=== PATIENT | female | born 1935 | race Caucasian/White ===

== ENCOUNTER 2022-10-26 13:43 | Inpatient (IN) ==
[2022-10-26] MEDS ORDERED: TYLENOL 500 MG TAB EXTRA STRENGTH PO PRN (15:21)
[2022-10-26] MEDS ORDERED: ZOFRAN INJ 4 MG VIAL IVP PRN (15:23)
--- NOTE | 2022-10-26 15:58 | DR.H&P ---
H&P - History & Physical for Day of: H&P Date: 10/26/22 - Chief Complaint Chief Complaint: fever, ccc - History of Present Illness History of Present Illness: PT IS 87 WF, DIRECT ADMIT FROM DR MORRISON OFFICE WITH INFLUENZA A+ WITH CO FEVER, FATIGUE, CCC AND DEHYDRATION. PT REPORTS ONSET OF ILLNESS ONE WEEK AGO. PT HAS TAKE OTC ROBITUSSIN DM. PT HAS PMH OF HTN, CAD, OA, GERD AND HYPOTHYROIDISM. PT ADMITTED FOR TREATMENT AND EVALUATION OF ACUTE ILLNESS. - Past Medical History Past Medical History: Anxiety, Coronary Artery Disease, Dyslipidemia, Hypertension, Hypothyroidism - Past Surgical History Surgical History: Hysterectomy - Family History Family Medical History: Cancer, [place], Coronary Artery Disease, Hypertension - Social History Does patient currently use any type of tobacco product: No Have you used tobacco products in the last 12 months: No Type of Tobacco Use: None Does any household member use tobacco: No Alcohol Use: None Drug Use: None Risks, benefits, and alternatives of opioids discussed: No - Review of Systems Constitutional: Weakness Eyes: No Symptoms Reported ENT: No Symptoms Reported Respiratory: Cough, Shortness of Breath Cardiovascular: No Symptoms Reported Gastrointestinal: Nausea Genitourinary: No Symptoms Reported Musculoskeletal: No Symptoms Reported Skin: No Symptoms Reported Neurological: Weakness Oriented: Normal Eyes: Normal Ear: Normal Nose: Normal Throat: Normal Respiratory: Diminished Throughout, Wheezes Throughout Cardiovascular: Normal : Normal Auscultation: Bowel Sounds: Normal Palpation: Normal Tenderness: Normal Skin: Decreased Turgur Musculoskeletal: Normal Psychiatric: Anxiety Affect: Anxious Speech Pattern: Clear, Appropriate - Assessment/Plan (1) Influenza A Status: Acute Plan: ADMIT, RESP CONSULT. GENTLE IV HYDRATION, TAMIFUL. CXR ON ADMISSION. PRN SUPPLEMENTAL O2. VERIFY HOME MEDICATION, BP CONTROL (2) Acute bronchitis Status: Acute (3) Dyslipidemia Status: Chronic (4) Hypertension Status: Chronic (5) Hypothyroidism Status: Chronic (6) GERD (gastroesophageal reflux disease) Status: Chronic - Allergies Allergies/Adverse Reactions: Allergies Allergy/AdvReac Type Severity Reaction Status Date / Time MS Ceftriaxone Allergy Intermediate RASH Verified 03/11/13 17:50 [From Rocephin] - Medications Home Medications: Home Medications Medication Instructions Recorded Confirmed amlodipine 5 mg tablet 5 mg PO DAILY 03/11/13 09/19/13 benazepril 10 mg tablet 10 mg PO DAILY 03/11/13 09/19/13 conjugated estrogens 0.625 mg 0.625 mg PO DAILY 03/11/13 09/19/13 tablet (Premarin) levothyroxine 100 mcg tablet 0.1 mg PO DAILY 03/11/13 09/19/13 (Synthroid) propranolol 80 mg capsule,24 80 mg PO DAILY 03/11/13 09/19/13 hr,extended release (Inderal LA) simvastatin 40 mg tablet 40 mg PO DAILY 03/11/13 09/19/13 Previous Rx's Medication Instructions Recorded Fenofibrate [Fenofibrate 160 mg] 160 mg PO HS #30 tabs 09/20/13 famotidine 20 mg tablet 20 mg PO BID #60 tabs 09/20/13 lansoprazole 30 mg capsule,delayed 30 mg PO DAILY #30 caps 09/20/13 release
[2022-10-26] MEDS ORDERED: CONSULT PHARMACY - POTASSIUM & MAGNESIUM XX SCH (16:00)
[2022-10-26 16:17] VITALS: RESP 20
[2022-10-26 16:19] LABS: BASOPHILS % (AUTO) 0.2 % (0.2-1.0); EOSINOPHILS % (AUTO) 0.6 % (0.9-2.9); HEMATOCRIT 37.9 % (36.0-47.0); HEMOGLOBIN 12.7 g/dL (12.0-16.0); LYMPHOCYTES # (AUTO) 1.1 X10^3/uL (1.3-2.9); LYMPHOCYTES % (AUTO) 17.7 % (21.0-51.0); MEAN CORPUSCULAR HEMOGLOBIN 32.1 pg (27.0-34.0); MEAN CORPUSCULAR HGB CONC 33.5 g/dL (33.0-35.0); MEAN PLATELET VOLUME 7.7 fL (7.4-11.0); MONOCYTES # (AUTO) 0.7 x10^3/uL (0.3-0.8); MONOCYTES % (AUTO) 11.4 % (0.0-13.0); NEUTROPHILS # (AUTO) 4.2 x10^3/uL (2.2-4.8); NEUTROPHILS % (AUTO) 70.1 % (42.0-75.0); PLATELET COUNT 179 X10^3/uL (150.0-450.0); RED BLOOD COUNT 3.95 X10^6/uL (3.5-5.4); RED CELL DISTRIBUTION WIDTH 12.7 % (11.6-16.5)
[2022-10-26 16:30] LABS: BLOOD UREA NITROGEN 11 mg/dL (7-18); CALCIUM 8.6 mg/dL (8.5-10.1); CARBON DIOXIDE 29.1 mmol/L (21-32); CHLORIDE 98 mmol/L (98-107); COR NA(FOR HYPERGLY) 134 mmol/L (136-145); CREATININE 0.75 mg/dL (0.55-1.02); GLUCOSE 129 mg/dL (65-99); POTASSIUM 4.8 mmol/L (3.5-5.1); SODIUM 133 mmol/L (136-145); eGFR NON BLACK RACES > 60 (>60)
[2022-10-26 16:42] LABS: ALANINE AMINOTRANSFERASE 15 Units/L (12-78); ALBUMIN 2.4 g/dL (3.4-5.0); ALKALINE PHOSPHATASE 112 Units/L (46-116); ASPARTATE AMINO TRANSFERASE 21 Units/L (15-37); COR CA(FOR HYPOALB) 9.9 mg/dL (8.5-10.1); MAGNESIUM 1.9 mg/dL (2.0-2.9); TOTAL PROTEIN 6.9 g/dL (6.4-8.2)
--- NOTE | 2022-10-26 16:46 | RAD ---
HISTORYflu, fever, sobSTUDYCHEST, PA/LAT ADULTCOMPARISONNoneTECHNIQUETwo views of the chestFINDINGSStreaky bilateral lower lobe interstitial opacities with increased density in the lower lung warner as seen on the lateral view of the chest. No densely organized airspace consolidation. Heart size is normal. No mediastinal widening observed. No pleural fluid collections are demonstrated. There is no evidence of free air or pneumothorax. No acute osseous abnormalities of the chest.IMPRESSIONStreaky lower lobe interstitial infiltratesElectronically signed by: GIUSEPPE PORTILLO (Oct 26, 2022 16:45:08)
[2022-10-26] MEDS: PEPCID TAB 40 MG PO SCH (16:54)
[2022-10-26] MEDS: ZyrTEC TAB 10 MG PO SCH (16:54)
[2022-10-26] MEDS: ROBITUSSIN DM PO SCH ×2 (16:54→20:37)
[2022-10-26] MEDS: ZITHROMAX TAB 250 MG PO SCH (16:54)
[2022-10-26] MEDS: TAMIFLU PO SCH ×2 (16:55→20:37)
[2022-10-26] MEDS: NS 1,000 ML IV 1,000 ML IV SCH (16:55)
[2022-10-26] MEDS: MAGNESIUM SULFATE 1 GRAM/100 mL PREMIX 1 G/100 ML BAG IV SCH ×2 (17:43→20:38)
[2022-10-27] MEDS: ROBITUSSIN DM PO SCH ×5 (04:23→20:31)
[2022-10-27] MEDS: NS 1,000 ML IV 1,000 ML IV SCH ×2 (05:10→20:32)
[2022-10-27 06:29] LABS: BLOOD UREA NITROGEN 7 mg/dL (7-18); CALCIUM 8.4 mg/dL (8.5-10.1); CARBON DIOXIDE 22.1 mmol/L (21-32); CHLORIDE 101 mmol/L (98-107); COR NA(FOR HYPERGLY) 134 mmol/L (136-145); CREATININE 0.68 mg/dL (0.55-1.02); GLUCOSE 137 mg/dL (65-99); POTASSIUM 4.3 mmol/L (3.5-5.1); SODIUM 133 mmol/L (136-145); eGFR NON BLACK RACES > 60 (>60)
[2022-10-27 06:35] LABS: BASOPHILS % (AUTO) 0.2 % (0.2-1.0); EOSINOPHILS % (AUTO) 0.3 % (0.9-2.9); HEMOGLOBIN 12.1 g/dL (12.0-16.0); LYMPHOCYTES # (AUTO) 0.9 X10^3/uL (1.3-2.9); LYMPHOCYTES % (AUTO) 13.4 % (21.0-51.0); MEAN CORPUSCULAR HEMOGLOBIN 32.2 pg (27.0-34.0); MEAN CORPUSCULAR HGB CONC 33.7 g/dL (33.0-35.0); MEAN CORPUSCULAR VOLUME 95.6 fL (80.0-100.0); MONOCYTES # (AUTO) 0.6 x10^3/uL (0.3-0.8); MONOCYTES % (AUTO) 9.3 % (0.0-13.0); NEUTROPHILS % (AUTO) 76.8 % (42.0-75.0); PLATELET COUNT 165 X10^3/uL (150.0-450.0); RED BLOOD COUNT 3.77 X10^6/uL (3.5-5.4); WHITE BLOOD COUNT 6.5 X10^3/uL (3.6-10.0)
[2022-10-27 06:55] LABS: ALANINE AMINOTRANSFERASE < 6 Units/L (12-78); ALKALINE PHOSPHATASE 100 Units/L (46-116); ASPARTATE AMINO TRANSFERASE 22 Units/L (15-37); MAGNESIUM 2.2 mg/dL (2.0-2.9); TOTAL PROTEIN 6.2 g/dL (6.4-8.2)
[2022-10-27] MEDS: SYNTHROID 100 mcg TAB PO SCH (08:45)
[2022-10-27] MEDS: ZITHROMAX TAB 250 MG PO SCH (08:46)
[2022-10-27] MEDS: TAMIFLU PO SCH ×2 (08:46→20:31)
[2022-10-27] MEDS: ZOCOR TAB 40 MG PO SCH (08:46)
[2022-10-27] MEDS: LOTENSIN TAB 10 MG PO SCH (08:46)
[2022-10-27] MEDS: NORVASC TAB 5 MG PO SCH (08:47)
[2022-10-27] MEDS: PEPCID TAB 40 MG PO SCH (08:47)
[2022-10-27] MEDS: ZyrTEC TAB 10 MG PO SCH (08:47)
[2022-10-27] MEDS: PROPRANOLOL 80 MG PO SCH (08:52)
[2022-10-27] MEDS: [UNRECOGNIZED DRUG - OTHER] PO SCH (08:52)
[2022-10-27] MEDS: LOVENOX INJ 40 MG SYR SC SCH (10:36)
[2022-10-27] MEDS ORDERED: TESSALON PERLES PO PRN (18:09)
--- NOTE | 2022-10-27 18:11 | PCM.PROG ---
Progress Note - Progress Note for Day of Date of Exam: 10/27/22 - Subjective Subjective: PT IS 87 WF, ADMITTED WITH INFLUENZA A PNEUMONIA. PT IS CURRENTLY ON ZITHROMAX AND TAMIFLU. SHE CONTINUES TO CO WEAKNESS. HER SODIUM WAS LOW ON ADMISSION AND SHE IS ON GENTLE IV HYDRATION. PT HAS IS AND ENCOURAGED AMBULATION AND ORAL HYDRATION WITH GATORADE/POWERADE. PT'S HOME MEDICATION HAVE BEEN RESUMED. BP STABLE. PLAN TO REPEAT AM CXR AND ADD BUDESONIDE NEBS BID. - Past Medical Family Social History Past Med/Fam/Surg Hx: No changes since H&P Allergies: Allergies MS Ceftriaxone [From Rocephin] Allergy (Intermediate, Verified 03/11/13 17:50) RASH - Vital Signs and I&O's Vital Signs: Vital Signs Temperature 98.2 F Temperature 97.5 F Pulse Rate [Bilateral Radial] 72 Pulse Rate [Bilateral Radial] 68 Respiratory Rate 20 Respiratory Rate 20 Blood Pressure [Left Arm] 139/64 Blood Pressure [Left Arm] 140/65 Blood Pressure [Right Arm] 146/65 Blood Pressure [Right Arm] 146/65 O2 Sat by Pulse Oximetry 94 O2 Sat by Pulse Oximetry 95 Intake and Output: Intake & Output 10/25/22 10/26/22 10/27/22 10/28/22 11:59 11:59 11:59 11:59 Intake Total 1347 / 1347 720 / 720 Balance 1347 / 1347 720 / 720 - Physical Exam Oriented: Normal Eyes: Normal Ear: Normal Nose: Normal Throat: Normal Respiratory: OTHER (COUGH) Cardiovascular: Normal : Normal Auscultation: Bowel Sounds: Normal Tenderness: Normal Skin: Decreased Turgur Musculoskeletal: Normal Psychiatric: Anxiety Affect: Anxious Speech Pattern: Clear, Appropriate - Laboratory and Diagnostics Result Diagrams: 10/27/22 05:49 10/27/22 05:49 Labs: Laboratory WBC 6.5 X10^3/uL (3.6-10.0) 10/27/22 05:49 RBC 3.77 X10^6/uL (3.5-5.4) 10/27/22 05:49 Hgb 12.1 g/dL (12.0-16.0) 10/27/22 05:49 Hct 36.0 % (36.0-47.0) 10/27/22 05:49 MCV 95.6 fL (80.0-100.0) 10/27/22 05:49 MCH 32.2 pg (27.0-34.0) 10/27/22 05:49 MCHC 33.7 g/dL (33.0-35.0) 10/27/22 05:49 RDW 13.0 % (11.6-16.5) 10/27/22 05:49 Plt Count 165 X10^3/uL (150.0-450.0) 10/27/22 05:49 MPV 8.0 fL (7.4-11.0) 10/27/22 05:49 Neut % (Auto) 76.8 % (42.0-75.0) H 10/27/22 05:49 Lymph % (Auto) 13.4 % (21.0-51.0) L 10/27/22 05:49 [place] % (Auto) 9.3 % (0.0-13.0) 10/27/22 05:49 Eos % (Auto) 0.3 % (0.9-2.9) L 10/27/22 05:49 Baso % (Auto) 0.2 % (0.2-1.0) 10/27/22 05:49 Neut # (Auto) 5.0 x10^3/uL (2.2-4.8) H 10/27/22 05:49 Lymph # (Auto) 0.9 X10^3/uL (1.3-2.9) L 10/27/22 05:49 [place] # (Auto) 0.6 x10^3/uL (0.3-0.8) 10/27/22 05:49 Eos # (Auto) 0.0 x10^3/uL (0.0-0.2) 10/27/22 05:49 Baso # (Auto) 0.0 X10^3/uL (0.0-0.1) 10/27/22 05:49 Absolute Nucleated RBC 0.1 /100WBC 10/27/22 05:49 Sodium 133 mmol/L (136-145) L 10/27/22 05:49 Corrected Sodium 134 mmol/L (136-145) L 10/27/22 05:49 Potassium 4.3 mmol/L (3.5-5.1) 10/27/22 05:49 Chloride 101 mmol/L (98-107) 10/27/22 05:49 Carbon Dioxide 22.1 mmol/L (21-32) 10/27/22 05:49 BUN 7 mg/dL (7-18) 10/27/22 05:49 Creatinine 0.68 mg/dL (0.55-1.02) 10/27/22 05:49 Est GFR (MDRD) Af Amer > 60 (>60) 10/27/22 05:49 Est GFR (MDRD) Non-Af > 60 (>60) 10/27/22 05:49 Glucose 137 mg/dL (65-99) H 10/27/22 05:49 POC Glucose (mg/dL) 127 mg/dL (65-99) H 10/27/22 06:03 Calcium 8.4 mg/dL (8.5-10.1) L 10/27/22 05:49 Corrected Calcium 10.0 mg/dL (8.5-10.1) 10/27/22 05:49 Magnesium 2.2 mg/dL (2.0-2.9) 10/27/22 05:49 Total Bilirubin 0.30 mg/dL (0.2-1.0) 10/27/22 05:49 AST 22 Units/L (15-37) 10/27/22 05:49 ALT < 6 Units/L (12-78) L 10/27/22 05:49 Alkaline Phosphatase 100 Units/L (46-116) 10/27/22 05:49 Total Protein 6.2 g/dL (6.4-8.2) L 10/27/22 05:49 Albumin 2.0 g/dL (3.4-5.0) L 10/27/22 05:49 Globulin 4.2 g/dL (2.5-4.5) 10/27/22 05:49 Albumin/Globulin Ratio 0.5 Ratio (1.1-2.1) L 10/27/22 05:49 - Plan (1) Influenza A Status: Acute Plan: RESP CONSULT. GENTLE IV HYDRATION, TAMIFLU. CXR AM. PRN SUPPLEMENTAL O2. CONTINUE HOME MEDICATIONS, BP CONTROL (2) Acute bronchitis Status: Acute (3) Dyslipidemia Status: Chronic (4) Hypertension Status: Chronic (5) Hypothyroidism Status: Chronic (6) GERD (gastroesophageal reflux disease) Status: Chronic
[2022-10-27] MEDS: COLACE CAP 100 MG PO SCH (20:31)
[2022-10-27] MEDS: PULMICORT NEB TX 0.5 MG NEB SCH (21:07)
[2022-10-28 06:56] LABS: BASOPHILS % (AUTO) 0.2 % (0.2-1.0); EOSINOPHILS % (AUTO) 0.4 % (0.9-2.9); HEMOGLOBIN 13.4 g/dL (12.0-16.0); LYMPHOCYTES % (AUTO) 16.5 % (21.0-51.0); MEAN CORPUSCULAR HGB CONC 33.5 g/dL (33.0-35.0); MEAN CORPUSCULAR VOLUME 95.5 fL (80.0-100.0); MEAN PLATELET VOLUME 8.1 fL (7.4-11.0); MONOCYTES # (AUTO) 0.6 x10^3/uL (0.3-0.8); NEUTROPHILS # (AUTO) 4.6 x10^3/uL (2.2-4.8); NEUTROPHILS % (AUTO) 72.9 % (42.0-75.0); PLATELET COUNT 198 X10^3/uL (150.0-450.0); RED BLOOD COUNT 4.19 X10^6/uL (3.5-5.4); RED CELL DISTRIBUTION WIDTH 12.6 % (11.6-16.5); WHITE BLOOD COUNT 6.4 X10^3/uL (3.6-10.0)
[2022-10-28 06:59] LABS: ALANINE AMINOTRANSFERASE 10 Units/L (12-78); ALBUMIN 2.3 g/dL (3.4-5.0); ALKALINE PHOSPHATASE 121 Units/L (46-116); ASPARTATE AMINO TRANSFERASE 22 Units/L (15-37); BLOOD UREA NITROGEN 4 mg/dL (7-18); CALCIUM 8.4 mg/dL (8.5-10.1); CARBON DIOXIDE 27.7 mmol/L (21-32); CHLORIDE 98 mmol/L (98-107); COR CA(FOR HYPOALB) 9.8 mg/dL (8.5-10.1); COR NA(FOR HYPERGLY) 133 mmol/L (136-145); CREATININE 0.66 mg/dL (0.55-1.02); GLUCOSE 114 mg/dL (65-99); SODIUM 133 mmol/L (136-145); TOTAL PROTEIN 7.1 g/dL (6.4-8.2); eGFR NON BLACK RACES > 60 (>60)
--- NOTE | 2022-10-28 07:14 | RAD ---
HISTORYPneumoniaSTUDYChest AP [id number] t size is normal. [place] are normal. Lungs are well inflated. There is a subtle patchy infiltrate in the right lung base suggestive of bronchopneumonia. Remainder of the lung warner are clear. No pleural effusions are identified. Bony thorax is unremarkable.IMPRESSIONSubtle patchy infiltrate in the right lung base consistent with bronchopneumoniaElectronically signed by: LIZETTE MCKEON (Oct 28, 2022 07:13:20)
[2022-10-28] MEDS: PULMICORT NEB TX 0.5 MG NEB SCH ×2 (08:35→20:18)
[2022-10-28] MEDS: ROBITUSSIN DM PO SCH ×4 (09:04→20:19)
[2022-10-28] MEDS: PEPCID TAB 40 MG PO SCH ×2 (09:04→20:19)
[2022-10-28] MEDS: LOVENOX INJ 40 MG SYR SC SCH (09:04)
[2022-10-28] MEDS: ZyrTEC TAB 10 MG PO SCH (09:04)
[2022-10-28] MEDS: TAMIFLU PO SCH ×2 (09:05→20:19)
[2022-10-28] MEDS: ZITHROMAX TAB 250 MG PO SCH (09:05)
[2022-10-28] MEDS: SYNTHROID 100 mcg TAB PO SCH (09:05)
[2022-10-28] MEDS: LOTENSIN TAB 10 MG PO SCH (09:05)
[2022-10-28] MEDS: NORVASC TAB 5 MG PO SCH (09:05)
[2022-10-28] MEDS: PROPRANOLOL 80 MG PO SCH (09:05)
[2022-10-28] MEDS: [UNRECOGNIZED DRUG - OTHER] PO SCH (09:05)
[2022-10-28] MEDS: SOLU-Medrol 40 MG VIAL IVP SCH (13:00)
[2022-10-28] MEDS: ZOCOR TAB 40 MG PO SCH (13:50)
[2022-10-28] MEDS: NS 1,000 ML IV 1,000 ML IV SCH ×2 (13:51→14:09)
[2022-10-28] MEDS: LEVAQUIN PREMIX IV 500 MG 500 MG/100 ML BAG IV SCH (14:07)
[2022-10-28] MEDS: TESSALON PERLES PO SCH ×2 (14:08→21:02)
--- NOTE | 2022-10-28 17:55 | PCM.PROG ---
Progress Note - Progress Note for Day of Date of Exam: 10/28/22 - Subjective Subjective: PT IS 87 WF, ADMITTED WITH INFLUENZA A PNEUMONIA. PT IS CURRENTLY ON ZITHROMAX AND TAMIFLU. SHE CONTINUES TO CO WEAKNESS. HER SODIUM WAS LOW ON ADMISSION AND SHE IS ON GENTLE IV HYDRATION. PT HAS IS AND ENCOURAGED AMBULATION AND ORAL HYDRATION WITH GATORADE/POWERADE. PTS AIT SWAB WAS POSITIVE FOR COVID 19. WE ADDED LEVAQUIN AND PAXLOVID TO TREATMENT REGIMEN. PT'S HOME MEDICATION HAVE BEEN RESUMED. BP STABLE. PLAN TO REPEAT AM CXR AND LABS. PT IS ON BUDESONIDE NEBS BID. - Past Medical Family Social History Past Med/Fam/Surg Hx: No changes since H&P Allergies: Allergies ceftriaxone Allergy (Intermediate, Verified 10/28/22 08:11) RASH - Vital Signs and I&O's Vital Signs: Vital Signs Temperature 98.4 F Temperature 98.1 F Pulse Rate [Bilateral Radial] 80 Pulse Rate [Bilateral Radial] 75 Respiratory Rate 20 Respiratory Rate 20 Blood Pressure [Left Arm] 148/75 Blood Pressure [Left Arm] 149/72 O2 Sat by Pulse Oximetry 95 O2 Sat by Pulse Oximetry 95 Intake and Output: Intake & Output 10/26/22 10/27/22 10/28/22 10/29/22 11:59 11:59 11:59 11:59 Intake Total 1347 / 1347 1095 / 1095 660 / 660 Balance 1347 / 1347 1095 / 1095 660 / 660 - Physical Exam Oriented: Normal Eyes: Normal Ear: Normal Nose: Normal Throat: Normal Respiratory: Diminished, OTHER (COUGH) Cardiovascular: Normal : Normal Auscultation: Bowel Sounds: Normal Tenderness: Normal Skin: Decreased Turgur Musculoskeletal: Normal Psychiatric: Anxiety Affect: Anxious Speech Pattern: Clear, Appropriate - Laboratory and Diagnostics Result Diagrams: 10/28/22 05:40 10/28/22 05:40 Labs: Laboratory WBC 6.4 X10^3/uL (3.6-10.0) 10/28/22 05:40 RBC 4.19 X10^6/uL (3.5-5.4) 10/28/22 05:40 Hgb 13.4 g/dL (12.0-16.0) 10/28/22 05:40 Hct 40.0 % (36.0-47.0) 10/28/22 05:40 MCV 95.5 fL (80.0-100.0) 10/28/22 05:40 MCH 32.0 pg (27.0-34.0) 10/28/22 05:40 MCHC 33.5 g/dL (33.0-35.0) 10/28/22 05:40 RDW 12.6 % (11.6-16.5) 10/28/22 05:40 Plt Count 198 X10^3/uL (150.0-450.0) 10/28/22 05:40 MPV 8.1 fL (7.4-11.0) 10/28/22 05:40 Neut % (Auto) 72.9 % (42.0-75.0) 10/28/22 05:40 Lymph % (Auto) 16.5 % (21.0-51.0) L 10/28/22 05:40 [place] % (Auto) 10.0 % (0.0-13.0) 10/28/22 05:40 Eos % (Auto) 0.4 % (0.9-2.9) L 10/28/22 05:40 Baso % (Auto) 0.2 % (0.2-1.0) 10/28/22 05:40 Neut # (Auto) 4.6 x10^3/uL (2.2-4.8) 10/28/22 05:40 Lymph # (Auto) 1.0 X10^3/uL (1.3-2.9) L 10/28/22 05:40 [place] # (Auto) 0.6 x10^3/uL (0.3-0.8) 10/28/22 05:40 Eos # (Auto) 0.0 x10^3/uL (0.0-0.2) 10/28/22 05:40 Baso # (Auto) 0.0 X10^3/uL (0.0-0.1) 10/28/22 05:40 Absolute Nucleated RBC 0.1 /100WBC 10/28/22 05:40 Sodium 133 mmol/L (136-145) L 10/28/22 05:40 Corrected Sodium 133 mmol/L (136-145) L 10/28/22 05:40 Potassium 4.0 mmol/L (3.5-5.1) 10/28/22 05:40 Chloride 98 mmol/L (98-107) 10/28/22 05:40 Carbon Dioxide 27.7 mmol/L (21-32) 10/28/22 05:40 BUN 4 mg/dL (7-18) L 10/28/22 05:40 Creatinine 0.66 mg/dL (0.55-1.02) 10/28/22 05:40 Est GFR (MDRD) Af Amer > 60 (>60) 10/28/22 05:40 Est GFR (MDRD) Non-Af > 60 (>60) 10/28/22 05:40 Glucose 114 mg/dL (65-99) H 10/28/22 05:40 POC Glucose (mg/dL) 127 mg/dL (65-99) H 10/27/22 06:03 Calcium 8.4 mg/dL (8.5-10.1) L 10/28/22 05:40 Corrected Calcium 9.8 mg/dL (8.5-10.1) 10/28/22 05:40 Magnesium 2.2 mg/dL (2.0-2.9) 10/27/22 05:49 Total Bilirubin 0.60 mg/dL (0.2-1.0) 10/28/22 05:40 AST 22 Units/L (15-37) 10/28/22 05:40 ALT 10 Units/L (12-78) L 10/28/22 05:40 Alkaline Phosphatase 121 Units/L (46-116) H 10/28/22 05:40 Total Protein 7.1 g/dL (6.4-8.2) 10/28/22 05:40 Albumin 2.3 g/dL (3.4-5.0) L 10/28/22 05:40 Globulin 4.8 g/dL (2.5-4.5) H 10/28/22 05:40 Albumin/Globulin Ratio 0.5 Ratio (1.1-2.1) L 10/28/22 05:40 Resp Viral Panel (PCR) See scanned report 10/26/22 15:53 - Plan (1) Influenza A Status: Acute Plan: RESP CONSULT. GENTLE IV HYDRATION, TAMIFLU. CXR AM. PRN SUPPLEMENTAL O2. CONTINUE HOME MEDICATIONS, BP CONTROL (2) COVID Status: Acute (3) Acute bronchitis Status: Acute (4) Dyslipidemia Status: Chronic (5) Hypertension Status: Chronic (6) Hypothyroidism Status: Chronic (7) GERD (gastroesophageal reflux disease) Status: Chronic
[2022-10-28] MEDS: PAXLOVID CO-PACK (EUA) PO SCH ×2 (18:40→20:31)
[2022-10-28] MEDS ORDERED: XOPENEX 1.25 MG/3 ML NEBULE NEB ONE (19:17)
[2022-10-28] MEDS: XOPENEX 1.25 MG/3 ML NEBULE NEB SCH (20:18)
[2022-10-28] MEDS: COLACE CAP 100 MG PO SCH (20:19)
[2022-10-29] MEDS: NS 1,000 ML IV 1,000 ML IV SCH ×3 (01:01→17:01)
[2022-10-29] MEDS: TESSALON PERLES PO SCH ×3 (05:12→21:05)
[2022-10-29 06:02] LABS: BASOPHILS % (AUTO) 0.1 % (0.2-1.0); HEMATOCRIT 37.8 % (36.0-47.0); HEMOGLOBIN 12.9 g/dL (12.0-16.0); LYMPHOCYTES # (AUTO) 0.4 X10^3/uL (1.3-2.9); LYMPHOCYTES % (AUTO) 9.9 % (21.0-51.0); MEAN CORPUSCULAR HEMOGLOBIN 32.4 pg (27.0-34.0); MEAN CORPUSCULAR VOLUME 95.4 fL (80.0-100.0); MEAN PLATELET VOLUME 8.2 fL (7.4-11.0); MONOCYTES # (AUTO) 0.1 x10^3/uL (0.3-0.8); MONOCYTES % (AUTO) 2.2 % (0.0-13.0); NEUTROPHILS # (AUTO) 3.4 x10^3/uL (2.2-4.8); NEUTROPHILS % (AUTO) 87.8 % (42.0-75.0); PLATELET COUNT 185 X10^3/uL (150.0-450.0); RED BLOOD COUNT 3.97 X10^6/uL (3.5-5.4); RED CELL DISTRIBUTION WIDTH 12.6 % (11.6-16.5); WHITE BLOOD COUNT 3.8 X10^3/uL (3.6-10.0)
--- NOTE | 2022-10-29 06:03 | RAD ---
HISTORYPNEUMONIA Relevant Clinical InformationSTUDYCHEST, 1 [id number]/2023FINDINGSThe trachea is midline. The cardiac silhouette is unremarkable. Subtle patchy infiltrate remains in the right lung base. No pleural effusion.. The bony thorax is unremarkable.IMPRESSIONStable portable chest.Electronically signed by: Mauro Box (Oct 29, 2022 06:02:07)
[2022-10-29 06:19] LABS: ALANINE AMINOTRANSFERASE 8 Units/L (12-78); ALBUMIN 2.2 g/dL (3.4-5.0); ALKALINE PHOSPHATASE 110 Units/L (46-116); ASPARTATE AMINO TRANSFERASE 19 Units/L (15-37); BLOOD UREA NITROGEN 5 mg/dL (7-18); CALCIUM 8.1 mg/dL (8.5-10.1); CHLORIDE 99 mmol/L (98-107); COR CA(FOR HYPOALB) 9.5 mg/dL (8.5-10.1); COR NA(FOR HYPERGLY) 134 mmol/L (136-145); CREATININE 0.62 mg/dL (0.55-1.02); GLUCOSE 172 mg/dL (65-99); POTASSIUM 3.6 mmol/L (3.5-5.1); SODIUM 132 mmol/L (136-145); TOTAL PROTEIN 6.8 g/dL (6.4-8.2); eGFR NON BLACK RACES > 60 (>60)
[2022-10-29] MEDS ORDERED: CONSULT PHARMACY - POTASSIUM & MAGNESIUM XX SCH (07:00)
[2022-10-29] MEDS: PULMICORT NEB TX 0.5 MG NEB SCH ×2 (08:55→20:22)
[2022-10-29] MEDS: XOPENEX 1.25 MG/3 ML NEBULE NEB SCH ×2 (08:55→20:22)
[2022-10-29] MEDS ORDERED: K-DUR TAB 20 MEQ PO ONE (09:00)
[2022-10-29] MEDS: TAMIFLU PO SCH ×2 (09:19→20:53)
[2022-10-29] MEDS: ROBITUSSIN DM PO SCH ×4 (09:19→20:52)
[2022-10-29] MEDS: LEVAQUIN PREMIX IV 500 MG 500 MG/100 ML BAG IV SCH (09:19)
[2022-10-29] MEDS: SOLU-Medrol 40 MG VIAL IVP SCH (09:19)
[2022-10-29] MEDS: LOVENOX INJ 40 MG SYR SC SCH (09:19)
[2022-10-29] MEDS: PEPCID TAB 40 MG PO SCH ×2 (09:19→20:52)
[2022-10-29] MEDS: NORVASC TAB 5 MG PO SCH (09:19)
[2022-10-29] MEDS: SYNTHROID 100 mcg TAB PO SCH (09:19)
[2022-10-29] MEDS: ZyrTEC TAB 10 MG PO SCH (09:20)
[2022-10-29] MEDS: LOTENSIN TAB 10 MG PO SCH (09:20)
[2022-10-29] MEDS: PAXLOVID CO-PACK (EUA) PO SCH ×2 (09:20→20:51)
[2022-10-29] MEDS: [UNRECOGNIZED DRUG - OTHER] PO SCH (09:20)
[2022-10-29] MEDS: PROPRANOLOL 80 MG PO SCH (09:20)
--- NOTE | 2022-10-29 13:17 | PCM.PROG ---
Progress Note - Progress Note for Day of Date of Exam: 10/29/22 - Subjective Subjective: PT IS 87 WF, ADMITTED WITH INFLUENZA A PNEUMONIA. PT IS CURRENTLY ON LEVAQUIN AND TAMIFLU. SHE CONTINUES TO CO WEAKNESS, BUT IMRPROVING. PT STATES SHE WAS ABLE TO GET A SHOWER YESTERDAY AND SHE ATE HER BREAKFAST THIS AM WITHOUT NAUSEA. HER SODIUM WAS LOW ON ADMISSION AND SHE IS ON GENTLE IV HYDRATION. PT HAS IS AND ENCOURAGED AMBULATION AND ORAL HYDRATION WITH GATORADE/POWERADE. PTS AIT SWAB WAS POSITIVE FOR COVID 19. WE ADDED PAXLOVID AFTER +RESULTS TO TREATMENT REGIMEN. PT'S HOME MEDICATION HAVE BEEN RESUMED. BP STABLE. PLAN TO REPEAT AM CXR AND LABS. PT IS ON BUDESONIDE NEBS BID. - Past Medical Family Social History Past Med/Fam/Surg Hx: No changes since H&P Allergies: Allergies ceftriaxone Allergy (Intermediate, Verified 10/28/22 08:11) RASH - Vital Signs and I&O's Vital Signs: Vital Signs Temperature 97.8 F Temperature 98.3 F Pulse Rate [Bilateral Radial] 80 Pulse Rate [Bilateral Radial] 85 Pulse Rate 89 Respiratory Rate 20 Respiratory Rate 20 Blood Pressure [Left Arm] 154/71 Blood Pressure [Left Arm] 193/90 O2 Sat by Pulse Oximetry 95 O2 Sat by Pulse Oximetry 97 O2 Sat by Pulse Oximetry 96 Intake and Output: Intake & Output 10/27/22 10/28/22 10/29/22 10/30/22 11:59 11:59 11:59 11:59 Intake Total 1347 / 1347 1095 / 1095 1957 Balance 1347 / 1347 1095 / 1095 1957 - Physical Exam Oriented: Normal Eyes: Normal Ear: Normal Nose: Normal Throat: Normal Respiratory: Diminished, OTHER (COUGH) Cardiovascular: Normal : Normal Auscultation: Bowel Sounds: Normal Tenderness: Normal Skin: Decreased Turgur Musculoskeletal: Normal Psychiatric: Anxiety Affect: Anxious Speech Pattern: Clear, Appropriate - Laboratory and Diagnostics Result Diagrams: 10/29/22 05:23 10/29/22 05:23 Labs: Laboratory WBC 3.8 X10^3/uL (3.6-10.0) 10/29/22 05:23 RBC 3.97 X10^6/uL (3.5-5.4) 10/29/22 05:23 Hgb 12.9 g/dL (12.0-16.0) 10/29/22 05:23 Hct 37.8 % (36.0-47.0) 10/29/22 05: MCV 95.4 fL (80.0-100.0) 10/29/22 05: MCH 32.4 pg (27.0-34.0) 10/29/22 05: MCHC 34.0 g/dL (33.0-35.0) 10/29/22 05: RDW 12.6 % (11.6-16.5) 10/29/22 05: Plt Count 185 X10^3/uL (150.0-450.0) 10/29/22 05: MPV 8.2 fL (7.4-11.0) 10/29/22 05: Neut % (Auto) 87.8 % (42.0-75.0) H 10/29/22 05: Lymph % (Auto) 9.9 % (21.0-51.0) L 10/29/22 05: [place] % (Auto) 2.2 % (0.0-13.0) 10/29/22 05: Eos % (Auto) 0.0 % (0.9-2.9) L 10/29/22 05: Baso % (Auto) 0.1 % (0.2-1.0) L 10/29/22 05:23 Neut # (Auto) 3.4 x10^3/uL (2.2-4.8) 10/29/22 05: Lymph # (Auto) 0.4 X10^3/uL (1.3-2.9) L 10/29/22 05:23 [place] # (Auto) 0.1 x10^3/uL (0.3-0.8) L 10/29/22 05:23 Eos # (Auto) 0.0 x10^3/uL (0.0-0.2) 10/29/22 05: Baso # (Auto) 0.0 X10^3/uL (0.0-0.1) 10/29/22 05: Absolute Nucleated RBC 0.0 /100WBC 10/29/22 05:23 Sodium 132 mmol/L (136-145) L 10/29/22 05:23 Corrected Sodium 134 mmol/L (136-145) L 10/29/22 05:23 Potassium 3.6 mmol/L (3.5-5.1) 10/29/22 05:23 Chloride 99 mmol/L (98-107) 10/29/22 05:23 Carbon Dioxide 23.0 mmol/L (21-32) 10/29/22 05:23 BUN 5 mg/dL (7-18) L 10/29/22 05:23 Creatinine 0.62 mg/dL (0.55-1.02) 10/29/22 05:23 Est GFR (MDRD) Af Amer > 60 (>60) 10/29/22 05:23 Est GFR (MDRD) Non-Af > 60 (>60) 10/29/22 05:23 Glucose 172 mg/dL (65-99) H 10/29/22 05:23 POC Glucose (mg/dL) 127 mg/dL (65-99) H 10/27/22 06:03 Calcium 8.1 mg/dL (8.5-10.1) L 10/29/22 05:23 Corrected Calcium 9.5 mg/dL (8.5-10.1) 10/29/22 05:23 Magnesium 2.2 mg/dL (2.0-2.9) 10/27/22 05:49 Total Bilirubin 0.60 mg/dL (0.2-1.0) 10/29/22 05:23 AST 19 Units/L (15-37) 10/29/22 05:23 ALT 8 Units/L (12-78) L 10/29/22 05:23 Alkaline Phosphatase 110 Units/L (46-116) 10/29/22 05:23 Total Protein 6.8 g/dL (6.4-8.2) 10/29/22 05:23 Albumin 2.2 g/dL (3.4-5.0) L 10/29/22 05:23 Globulin 4.6 g/dL (2.5-4.5) H 10/29/22 05:23 Albumin/Globulin Ratio 0.5 Ratio (1.1-2.1) L 10/29/22 05:23 Resp Viral Panel (PCR) See scanned report 10/26/22 15:53 - Plan (1) Influenza A Status: Acute Plan: RESP CONSULT. GENTLE IV HYDRATION, TAMIFLU. CXR AM. PRN SUPPLEMENTAL O2. CONTINUE HOME MEDICATIONS, BP CONTROL (2) COVID Status: Acute (3) Acute bronchitis Status: Acute (4) Dyslipidemia Status: Chronic (5) Hypertension Status: Chronic (6) Hypothyroidism Status: Chronic (7) GERD (gastroesophageal reflux disease) Status: Chronic
[2022-10-29] MEDS: COLACE CAP 100 MG PO SCH (20:51)
[2022-10-30 04:29] VITALS: TEMP 97.8
[2022-10-30] MEDS: TESSALON PERLES PO SCH (05:28)
[2022-10-30 06:04] LABS: BASOPHILS # (AUTO) 0.1 X10^3/uL (0.0-0.1); BASOPHILS % (AUTO) 0.9 % (0.2-1.0); HEMATOCRIT 39.1 % (36.0-47.0); HEMOGLOBIN 13.2 g/dL (12.0-16.0); LYMPHOCYTES # (AUTO) 0.5 X10^3/uL (1.3-2.9); LYMPHOCYTES % (AUTO) 5.9 % (21.0-51.0); MEAN CORPUSCULAR HGB CONC 33.7 g/dL (33.0-35.0); MEAN CORPUSCULAR VOLUME 94.9 fL (80.0-100.0); MONOCYTES # (AUTO) 0.3 x10^3/uL (0.3-0.8); MONOCYTES % (AUTO) 3.6 % (0.0-13.0); NEUTROPHILS # (AUTO) 7.8 x10^3/uL (2.2-4.8); NEUTROPHILS % (AUTO) 89.6 % (42.0-75.0); PLATELET COUNT 251 X10^3/uL (150.0-450.0); RED BLOOD COUNT 4.12 X10^6/uL (3.5-5.4); RED CELL DISTRIBUTION WIDTH 12.6 % (11.6-16.5); WHITE BLOOD COUNT 8.6 X10^3/uL (3.6-10.0)
[2022-10-30 06:25] LABS: ALANINE AMINOTRANSFERASE 14 Units/L (12-78); ALBUMIN 2.3 g/dL (3.4-5.0); ALKALINE PHOSPHATASE 97 Units/L (46-116); ASPARTATE AMINO TRANSFERASE 30 Units/L (15-37); BLOOD UREA NITROGEN 7 mg/dL (7-18); CALCIUM 8.1 mg/dL (8.5-10.1); CARBON DIOXIDE 25.4 mmol/L (21-32); CHLORIDE 100 mmol/L (98-107); COR CA(FOR HYPOALB) 9.5 mg/dL (8.5-10.1); COR NA(FOR HYPERGLY) 136 mmol/L (136-145); CREATININE 0.74 mg/dL (0.55-1.02); GLUCOSE 168 mg/dL (65-99); MAGNESIUM 1.9 mg/dL (2.0-2.9); POTASSIUM 3.3 mmol/L (3.5-5.1); SODIUM 134 mmol/L (136-145); TOTAL PROTEIN 6.8 g/dL (6.4-8.2); eGFR NON BLACK RACES > 60 (>60)
[2022-10-30] MEDS ORDERED: CONSULT PHARMACY - POTASSIUM & MAGNESIUM XX SCH (07:00)
--- NOTE | 2022-10-30 07:08 | RAD ---
HISTORYSOBSTUDYAP chestCOMPARISONAugust 2022FINDINGSHeart size remains normal. There is slight nonspecific interstitial prominence remaining in the lower lungs without evidence for segmental or lobar consolidation or pleural fluid. The hilar structures remain symmetric.IMPRESSIONSlight apparent improvement in aeration. No new abnormality, see above.Electronically signed by: MARILU CAPPS (Oct 30, 2022 07:06:52)
[2022-10-30] MEDS: NS 1,000 ML IV 1,000 ML IV SCH (08:29)
[2022-10-30] MEDS: LEVAQUIN PREMIX IV 500 MG 500 MG/100 ML BAG IV SCH (08:30)
[2022-10-30] MEDS: TAMIFLU PO SCH (08:31)
[2022-10-30] MEDS: NORVASC TAB 5 MG PO SCH (08:31)
[2022-10-30] MEDS: SYNTHROID 100 mcg TAB PO SCH (08:31)
[2022-10-30] MEDS: LOTENSIN TAB 10 MG PO SCH (08:31)
[2022-10-30] MEDS: ROBITUSSIN DM PO SCH (08:31)
[2022-10-30] MEDS: ZyrTEC TAB 10 MG PO SCH (08:31)
[2022-10-30] MEDS: PEPCID TAB 40 MG PO SCH (08:31)
[2022-10-30] MEDS: LOVENOX INJ 40 MG SYR SC SCH (08:32)
[2022-10-30] MEDS: MAG-OX TAB PO SCH ×2 (08:32→11:29)
[2022-10-30] MEDS: [UNRECOGNIZED DRUG - OTHER] PO SCH (08:39)
[2022-10-30] MEDS: PAXLOVID CO-PACK (EUA) PO SCH (08:39)
[2022-10-30] MEDS: PROPRANOLOL 80 MG PO SCH (08:39)
[2022-10-30] MEDS: SOLU-Medrol 40 MG VIAL IVP SCH (08:40)
[2022-10-30] MEDS: PULMICORT NEB TX 0.5 MG NEB SCH (08:45)
[2022-10-30] MEDS ORDERED: K-DUR TAB 20 MEQ PO SCH (09:00)
[2022-10-30 09:08] VITALS: O2SAT 97
[2022-10-30 10:31] VITALS: BP 154/97; PULSE 89
== END 2022-10-30 11:58 | disposition home or self-care (01) | DRG 177 ==
LOC: MED/SURG
PROVIDERS: ADMIT Internal Medicine; ATTEND Internal Medicine
DX: R53.1 Weakness; I25.10 Atherosclerotic heart disease of native coronary artery without angina pectoris; B95.3 Streptococcus pneumoniae as the cause of diseases classified elsewhere; K21.9 Gastro-esophageal reflux disease without esophagitis; U07.1 COVID-19; J10.08 Influenza due to other identified influenza virus with other specified pneumonia; J12.82 Pneumonia due to coronavirus disease 2019; E03.8 Other specified hypothyroidism; I10 Essential (primary) hypertension; E78.2 Mixed hyperlipidemia; E87.1 Hypo-osmolality and hyponatremia; R06.02 Shortness of breath; E86.0 Dehydration